=== PATIENT | female | born 1955 | race Caucasian/White ===

== ENCOUNTER 2020-01-26 12:23 | Outpatient (REF) | payer BC, SELFPAY | END 2020-01-26 12:24 | disposition home or self-care (01) | LOC: HO.LAB 12:23 | PROVIDERS: PCP Internal Medicine; Visit Provider Internal Medicine | DX: Z20.828 Contact with and (suspected) exposure to other viral communicable diseases (principal) | CPT/HCPCS: C9803; U0003 ==

== ENCOUNTER 2020-02-09 14:56 | Outpatient (REF) | payer BC, SELFPAY | END 2020-02-09 14:57 | disposition home or self-care (01) | LOC: HO.LAB 14:56 | PROVIDERS: PCP Internal Medicine; Visit Provider Internal Medicine | DX: Z20.828 Contact with and (suspected) exposure to other viral communicable diseases (principal) | CPT/HCPCS: C9803; U0003 ==

== ENCOUNTER 2020-11-12 12:20 | Emergency (ER) | payer BC, SELFPAY ==
--- NOTE | ~2020-11-12 | CT_ITS ---
EXAMINATION: CT ANGIOGRAM OF THE CHEST WITH AND WITHOUT CONTRAST (CT PULMONARY ANGIOGRAM FOR PE) CLINICAL INFORMATION: Reason for Exam pt c cough x months ? pe COMPARISON: None TECHNIQUE: Prior to contrast administration, noncontrast localization images were obtained. Subsequently, multidetector volumetric imaging was performed from the thoracic inlet to below the diaphragms following the administration of 60 mL Omnipaque 350 intravenous contrast. No contrast reaction reported Sagittal, coronal, and MIP oblique sagittal reformatted images were obtained on the CT workstation, uploaded to PACS, and reviewed. This CT examination was performed using dose optimization techniques as appropriate, variously including the following: *Automated exposure control *Adjustment of mA and/or kV according to patient size (this includes techniques or standardized protocols for targeted exams where dose is matched to indication/reason for exam; i.e. extremities or head) *Use of iterative reconstruction technique Total exam dose-length product 297 mGy-cm FINDINGS: QUALITY OF STUDY/CONTRAST BOLUS: Satisfactory. PULMONARY ARTERIES: No central or segmental pulmonary emboli. THORACIC AORTA: No aneurysm or dissection. LUNG: No focal consolidation, nodules or masses. PLEURA: No pleural effusion or pneumothorax. MEDIASTINUM: Normal heart size. No pericardial effusion. Some small mediastinal lymph nodes are present but there is no hilar or mediastinal lymphadenopathy. No evidence of septal bowing or right heart strain. CHEST WALL/AXILLA: No axillary or internal mammary lymphadenopathy. OSSEOUS STRUCTURES: Mild degenerative changes present in the spine. No acute or suspicious osseous abnormality. UPPER ABDOMEN: There may be some layering calculi in the gallbladder that are not calcified. Ultrasound could always be performed for further evaluation. No reflux of contrast into the hepatic veins to suggest elevated right heart pressures. CT/CT angio chest PE protocol IMPRESSION: No evidence of pulmonary emboli. No acute intrathoracic disease. No finding is seen which would account for the patient's chronic cough. VTE: negative
--- NOTE | ~2020-11-12 | XR_ITS ---
EXAMINATION: XR CHEST CLINICAL INFORMATION: Cough COMPARISON: None TECHNIQUE: Frontal view of the chest was obtained. FINDINGS: No significant abnormality is noted involving the heart, lungs, mediastinum, bony thorax or soft tissues. XR/XR chest 1V IMPRESSION: No acute disease.
[2020-11-12 14:08] VITALS: BP 150/87; PULSE 96; RESP 16; TEMP 36.9; O2SAT 98; BMI 21.8
[2020-11-12 14:49] LABS: MANUAL DIFF FLAG NO
[2020-11-12 14:52] LABS: Basophils Absolute Auto 0.1 X10*3/uL (0.0-0.2); Basophils Percent Auto 0.5 % (0-2); Eosinophils Absolute Auto 0.3 X10*3/uL (0.0-0.4); Hematocrit 34.8 % (37-47); Hemoglobin 11.7 g/dl (12.0-16.0); Imm Gran Abs Auto 0.07 X10*3/uL (0.00-0.03); Imm Gran Pct Auto 0.6 % (0.0-0.4); Lymphocytes Percent Auto 17.3 % (20-40); Mean Corpuscular HGB Conc 33.6 g/dl (31.0-35.0); Mean Corpuscular Hemoglobin 30.5 pg (27.0-33.0); Mean Corpuscular Volume 90.6 fL (80-98); Mean Platelet Volume 8.4 fL (9.4-12.3); Monocytes Absolute Auto 1.2 X10*3/uL (0.1-1.2); Monocytes Percent Auto 10.8 % (2-11); Neutrophils Absolute Auto 7.7 X10*3/uL (2.0-8.3); Neutrophils Percent Auto 67.8 % (45-73); Platelet Count 343 X10*3/uL (160-400); Red Blood Count 3.84 X10*6/uL (4.20-5.50); White Blood Count 11.4 X10*3/uL (4.8-10.8)
[2020-11-12 15:17] LABS: Anion Gap 14 (12-20); Blood Urea Nitrogen 4 mg/dL (9-16); Calcium 9.4 mg/dL (8.4-10.2); Carbon Dioxide 25 mmol/L (22-29); Chloride 95 mmol/L (96-108); Creatinine Clr Calc Pharmacy 90.1; Estimated Glomerular Filt Rate > 60; Glucose Random 105 mg/dL (60-115); Potassium 4.3 mmol/L (3.3-5.1); Sodium 130 mmol/L (135-145)
[2020-11-12] MEDS: 0.9 % Sodium Chloride 1,000 ML 999 ML IVCONT (16:02)
[2020-11-12 16:16] LABS: COVID-19 Test Negative (Negative)
--- NOTE | 2020-11-12 16:36 | ED.GENADULT ---
HPI - General Adult General Chief complaint: Upper Respiratory Symptoms Stated complaint: cough x years Time Seen by Provider: 11/12/20 15:26 Source: patient Mode of arrival: ambulatory Limitations: no limitations History of Present Illness HPI narrative: 64-year-old female with a past medical history of fibromyalgia, Raynaud's and hypertension presenting to the ED with multiple complaints. Patient reports that last December she followed up with her primary care provider to rule out cardiac related issues and her blood pressure was noted to be in the 180s therefore she was started on Nifedipine ER 30mg although she was having too many side effects which included dizziness and fatigue therefore they switched her to valsartan 160 mg daily. At this time they also prescribed Prilosec for her GERD along with Zyrtec and Flonase for her allergies and then her cough still did not improve therefore they started her on spironolactone/HCTZ and Azelastine nasal spray and she had an increase in cough along with burning sensation in her throat and nausea with leg cramps therefore they switched her back on the losartan in Flonase. She reports despite all these changes of medications she still has a dry cough with spasm lasting approximately 30 seconds to 10 minutes with cleared colored mucus production. She reports on Thursday she developed a fever of 100.7 with associated sore throat, headaches, body aches and laryngitis which continues to worsen. She denies recent travel or sick contacts. She reports she has tried many [id number] medication which include honey/all cough drop/Robitussin/NyQuil/Tea's/steams/vicks/humidifier and no symptomatic relief for her cough. She reports over 10 years ago she had a bronchoscopy/swallow eval/endoscopy and an ENT eval and they did not find any acute processes. She reports that she needs to follow back up with her doctor for colonoscopy and she also contacted them about her persistent cough and acid reflux and her PCP is going to schedule an endoscope. She denies any other symptoms complaints or concerns at this time. Related Data Previous Rx's Medication Instructions Recorded albuterol sulfate 90 mcg/actuation 1 inh INHALATION QID PRN #8.5 g 11/12/20 aerosol inhaler codeine 10 mg-guaifenesin 100 mg/5 5 ml PO Q6H PRN #120 ml 11/12/20 mL oral liquid (Guaifenesin AC) prednisone 5 mg tablet See Rx Instructions .ROUTE 11/12/20 .COMPLEX #20 tab Allergies Allergy/AdvReac Type Severity Reaction Status Date / Time crab Allergy Shortness Verified 11/12/20 14:17 of Breath doxycycline Allergy Swelling Verified 11/12/20 14:17 latex Allergy Rash Verified 11/12/20 14:17 Seasonal Allergies Allergy Nasal Verified 11/12/20 14:17 congestion sulfamethoxazole Allergy Rash Verified 11/12/20 14:17 [From Bactrim] trimethoprim [From Bactrim] Allergy Rash Verified 11/12/20 14:17 Review of Systems Review of Systems: Constitutional : Positive body aches, positive fatigue, positive laryngitis, positive fevers on Thursday none today, Weight loss, No Night Sweats ENT/Mouth : Positive nasal congestion/postnasal drip/sore throat, No Hearing loss, No Ear Pain, No Nasal Congestion, No Sinus Pain, No Hoarseness, No sore throat, No Rhinorrhea, No Swallowing Difficulty Eyes: No Eye Pain, No Swelling, No Redness, No Foreign Body, No Discharge, No Vision Changes Cardiovascular : No Chest Pain, No SOB, No Dyspnea on Exertion, No Orthopnea, No Edema, No Palpitations Respiratory : Positive cough with sputum production, No Wheezing, No Smoke Exposure, No Dyspnea Gastrointestinal : Positive acid reflux, No Nausea, No Vomiting, No Diarrhea, No Constipation, No abdominal Pain, No Hematochezia, No Melena Genitourinary : no irregular bleeding, No Dysuria, No Urinary Frequency, No Hematuria, No Urinary Incontinence, No Urgency, No Flank Pain, No Urinary Flow Changes, No Hesitancy Musculoskeletal : Positive myalgias, No joint pain, No Joint Swelling Skin : No Skin Lesions, No rash Neuro : Positive intermittent headaches and dizziness, No Weakness, No Numbness, No Paresthesias, No Loss of Consciousness Psych : No Anxiety/Panic, No Depression, No SI/HI/AH/VH, No Social Issues, Heme/Lymph: No Bruising, No Bleeding,No Lymphadenopathy Endocrine : No Polyuria, No Polydipsia, No Temperature Intolerance Yes all other systems are reviewed and are negative [facility] Past Medical History Attestation statement: The following information was validated with the patient. Medical History Fibromyalgia Hypertension Raynauds disease Social History Social History Advance Directives: No Advance Directives Information Provided: No Physical Exam Vital Signs: Vital Signs: Last Vital Signs Temp 97.8 F 11/12/20 17:58 Pulse 100 11/12/20 17:58 Resp 16 11/12/20 17:58 BP 154/75 H 11/12/20 17:58 Pulse Ox 96 11/12/20 17:58 Body Mass Index 21.8 vital signs have been reviewed as normal and appeared to be correct. Blood pressure hypertensive 150/87 Heart rate normal. Respiration rate normal. Temperature normal. Oxygen saturation normal. Appearance: Alert. Oriented X3. No acute distress. Head: Normal external exam. Normocephalic. Atraumatic. Eyes: PERRLA. EOMI. Conjunctiva and sclera normal. Eyelids normal. ENT: EAC normal. TM's Normal. Pharynx normal. Uvula midline. Moist mucous membranes. No trismus noted. No drooling noted. No muffled voice noted. Neck: Normal inspection. Neck supple. FROM. No adenopathy. Thyroid Normal. No meningeal signs. No neck mass noted. CVS: Normal heart rate and rhythm. Heart sound normal. Pulses normal throughout. No murmurs/rales/gallops. Respiratory: No respiratory distress. Painless inspiration. Breath sounds normal. No wheezes/rales/rhonchi noted. Chest nontender. No accessory muscle usage noted or decreased air movement noted. Abdomen: Soft and nontender. Bowel sounds normal in all 4 quadrants. No distention noted. No organomegaly noted. No visible injury noted. Back: Full range of motion noted. No rashes/lesion/induration/fluctuance or signs of infection noted. Skin: Skin warm and dry. Normal skin color. Normal skin turgor. No rashes/lesions/lacerations noted. Extremities: No lower extremity edema. No calf tenderness is noted bilaterally. Extremities exhibit normal range of motion. Extremities nontender. Neuro: Oriented X 3. No motor deficit. No sensory deficit. Reflexes normal. Normal steady gait. No focal neuro deficits noted. Vascular: + radial pulses/+ 2 distal pedal pulses/+2 dorsalis pedis b/l. Normal cap refill. No cyanosis noted to upper extremity nails and lower extremity toes nails. Course Course Course Narrative: 15:40pm - 64-year-old female with a past medical history of hypertension presenting to the ED with multiple complaints which include a productive cough with clear colored mucus over the past 10 years worse in the past 3 weeks with associated postnasal drip, a temperature of 100.7 degrees on Thursday with associated sore throat intermittent headaches and dizziness, body aches and laryngitis. Denies recent travel or sick contacts. Fully vaccinated for COVID-19 since July 2020. Labs obtained in [place] [address]. Mild anemia with an H&H of 11.7/34.8. Sodium of 130. Chloride 95. BUN 4. Otherwise all other labs are within normal limits. COVID swab negative. Chest x-ray was within normal limits. - therefore at this time will place an IV and provide 1 L of IV fluids and obtain a CTA of chest to evaluate for any other acute processes and re-evaluate. Reevaluation(s) Reevaluation #1: - CTA of chest negative for PE or any other acute processes. - therefore will DC home with symptomatic treatment as patient's cough worsened the past 3 months along with an albuterol inhaler and some steroids and instructions to follow-up with her primary care provider. Patient understands agrees with this plan. Time: 18:23 Medical Decision Making Medical Records Medical records reviewed: Yes I reviewed the patient's medical records. Lab Data Lab results reviewed: Yes I reviewed the patient's lab results. Result diagrams: 11/12/20 14:31 11/12/20 14:31 Labs: Lab Results 11/12/20 11/12/20 11/12/20 Range/Units 14:31 14:31 15:56 WBC 11.4 H (4.8-10.8) X10*3/uL RBC 3.84 L (4.20-5.50) X10*6/uL Hgb 11.7 L (12.0-16.0) g/dl Hct 34.8 L (37-47) % MCV 90.6 (80-98) fL MCH 30.5 (27.0-33.0) pg MCHC 33.6 (31.0-35.0) g/dl RDW 13.0 (11.0-16.0) % Plt Count 343 (160-400) X10*3/uL MPV 8.4 L (9.4-12.3) fL Immature Gran % (Auto) 0.6 H (0.0-0.4) % Neut % (Auto) 67.8 (45-73) % Lymph % (Auto) 17.3 L (20-40) % [place] % (Auto) 10.8 (2-11) % Eos % (Auto) 3.0 (0-4) % Baso % (Auto) 0.5 (0-2) % Lymph # (Auto) 2.0 (1.2-4.9) X10*3/uL [place] # (Auto) 1.2 (0.1-1.2) X10*3/uL Eos # (Auto) 0.3 (0.0-0.4) X10*3/uL Baso # (Auto) 0.1 (0.0-0.2) X10*3/uL Abs Immat Gran (auto) 0.07 H (0.00-0.03) X10*3/uL Absolute Neuts (auto) 7.7 (2.0-8.3) X10*3/uL Absolute Nucleated RBC 0.000 (0.0-0.012) X10*3/uL Nucleated RBC % (auto) 0.0 (0.0-0.2) /100WBC Sodium 130 L (135-145) mmol/L Potassium 4.3 (3.3-5.1) mmol/L Chloride 95 L (96-108) mmol/L Carbon Dioxide 25 (22-29) mmol/L Anion Gap 14 (12-20) BUN 4 L (9-16) mg/dL Creatinine 0.70 (0.5-1.4) mg/dL Estim Creat Clear Calc 90.1 Estimated GFR > 60 Random Glucose 105 (60-115) mg/dL Calcium 9.4 (8.4-10.2) mg/dL COVID-19 (JULY) Negative (Negative) COVID-19 Clin Com See Note Imaging Data Chest x-ray: Attestation: I personally reviewed and interpreted this imaging study as follows: Radiologist's impression: FINDINGS: No significant abnormality is noted involving the heart, lungs, mediastinum, bony thorax or soft tissues. XR/XR chest 1V IMPRESSION: No acute disease. CTA of chest for PE: Attestation: I personally reviewed and interpreted this imaging study as follows: Radiologist's impression: FINDINGS: QUALITY OF STUDY/CONTRAST BOLUS: Satisfactory. PULMONARY ARTERIES: No central or segmental pulmonary emboli.? THORACIC AORTA: No aneurysm or dissection. LUNG: No focal consolidation, nodules or masses. PLEURA: No pleural effusion or pneumothorax. MEDIASTINUM: Normal heart size.? No pericardial effusion. Some small mediastinal lymph nodes are present but there is no hilar or mediastinal lymphadenopathy.? No evidence of septal bowing or right heart strain. CHEST WALL/AXILLA: No axillary or internal mammary lymphadenopathy. OSSEOUS STRUCTURES: Mild degenerative changes present in the spine. No acute or suspicious osseous abnormality.? UPPER ABDOMEN: There may be some layering calculi in the gallbladder that are not calcified. Ultrasound could always be performed for further evaluation.? No reflux of contrast into the hepatic veins to suggest elevated right heart pressures. CT/CT angio chest PE protocol IMPRESSION: No evidence of pulmonary emboli. No acute intrathoracic disease. No finding is seen which would account for the patient's chronic cough. ? VTE: negative Discharge Plan Discharge Clinical Impression: Cough, Acute hyponatremia Patient Disposition: Home, Self-Care Instructions: Chronic Cough (ED), Hyponatremia (ED) Additional Instructions: You should follow-up with her doctor and have repeat blood work within the next 3-5 days due to your sodium level was 130 normal is 135-145. Prescriptions: New prednisone 5 mg tablet See Rx Instructions .ROUTE .COMPLEX Qty: 20 RF: 0 codeine-guaifenesin [Guaifenesin AC] 10-100 mg/5 mL liquid 5 ml PO Q6H PRN (Reason: cold symptoms) Qty: 120 RF: 0 albuterol sulfate 90 mcg/actuation HFA aerosol inhaler 1 inh inhalation QID PRN (Reason: shortness of breath or wheezing) Qty: 8.5 RF: 0 Referrals: Jason Valente MD [Primary Care Provider] - 2 days Print Language: Anguill[place]
[2020-11-12] MEDS: iohexoL 350 MG/ML 100 ML INFUS..BTL IV (17:07)
[2020-11-12 17:58] VITALS: BP 154/75; PULSE 100; RESP 16; TEMP 36.6; O2SAT 96
== END 2020-11-12 18:41 | disposition home or self-care (01) ==
PROVIDERS: Emergency Provider Emergency Medicine; PCP Internal Medicine
DX: R05 Cough (principal); E87.1 Hypo-osmolality and hyponatremia; Z79.899 Other long term (current) drug therapy; Z20.822 Contact with and (suspected) exposure to COVID-19
CPT/HCPCS: 36415; 71045; 71275; 80048; 85025; 87635; 96360; 99284; Q9967